=== PATIENT | male | born 1950 | race Two or more races ===

== ENCOUNTER 2017-02-24 17:38 | Emergency (ER) | payer BC ==
[2017-02-24 17:45] VITALS: BP 182/99
--- NOTE | 2017-02-24 18:25 | UC ---
Lower Extremity/Ankle HPI - HPI Summary HPI Summary: Swollen red tender area on left lower leg worsening over the past 2 days - History of Current Complaint Chief Complaint: UCLowerExtremity Stated Complaint: LEG PAIN Time Seen by Provider: 02/24/17 18:16 Hx Obtained From: Patient Onset/Duration: Gradual Onset, Lasting Days - 2 Severity Initially: Mild Severity Currently: Moderate Pain Intensity: 5 Pain Scale Used: 0-10 Numeric Aggravating Factor(s): Nothing Alleviating Factor(s): Nothing Able to Bear Weight: Yes - Allergies/Home Medications Allergies/Adverse Reactions: Allergies Allergy/AdvReac Type Severity Reaction Status Date / Time No Known Allergies Allergy Verified 02/24/17 17:39 PMH/Surg Hx/FS Hx/Imm Hx Endocrine History: Diabetes - Surgical History Surgical History: Yes Surgery Procedure, Year, and Place: Appendectomy, Ulnar nerve surgery, Appendectomy, - Family History Known Family History: Positive: None - Social History Occupation: Retired Lives: With Family Alcohol Use: Daily Alcohol Amount: 1-2 beers/night Substance Use Type: None Smoking Status (MU): Former Smoker - Immunization History Most Recent Influenza Vaccination: Fall 2013 Most Recent Tetanus Shot: Unknown Most Recent Pneumonia Vaccination: Never Review of Systems Constitutional: Negative Skin: Negative Eyes: Negative ENT: Negative Respiratory: Negative Cardiovascular: Negative Gastrointestinal: Negative Genitourinary: Negative Motor: Negative Neurovascular: Negative Musculoskeletal: Myalgia - lower left leg Neurological: Negative Psychological: Negative Is Patient Immunocompromised?: No All Other Systems Reviewed And Are Negative: Yes Physical Exam Triage Information Reviewed: Yes Appearance: Well-Appearing, No Pain Distress, Well-Nourished Vital Signs: Initial Vital Signs Temp 98.2 F 02/24/17 17:42 Pulse 63 02/24/17 17:42 Resp 15 02/24/17 17:42 BP 182/99 02/24/17 17:42 Pulse Ox 99 02/24/17 17:42 Vital Signs Reviewed: Yes Eye Exam: Normal Eyes: Positive: Conjunctiva Clear ENT Exam: Normal ENT: Positive: Normal ENT inspection, Hearing grossly normal. Negative: Nasal congestion, Nasal drainage, Trismus, Muffled/hoarse voice Dental Exam: Normal Neck exam: Normal Neck: Positive: Supple, Nontender Respiratory Exam: Normal Respiratory: Positive: Chest non-tender, Normal breath sounds, No respiratory distress Cardiovascular Exam: Normal Cardiovascular: Positive: RRR, Pulses Normal, Brisk Capillary Refill Musculoskeletal Exam: Normal Musculoskeletal: Positive: Strength Intact, ROM Intact, No Edema Neurological Exam: Normal Neurological: Positive: Alert, Muscle Tone Normal, Fatigued Psychological Exam: Normal Skin Exam: Normal Skin: Positive: Other - erythema left lower leg Lower Extremity Course/Dx - Course Course Of Treatment: d/c to [facility] for further care - Differential Dx/Diagnosis Differential Diagnosis/HQI/PQRI: Compartment Syndrome, DVT, Infection Provider Diagnoses: Red left lower leg, hupertension with diagnosis of high blood pressure Discharge - Discharge Plan Condition: Stable Disposition: HOME Patient Education Materials: Cellulitis (ED), Deep Venous Thrombosis (ED), Hypertension (ED) Referrals: Nikhil Torres MD [Primary Care Provider] - 1 Week Additional Instructions: We are recommending that you go directly to the hospital for a further evaluation than what can be done at the urgent care
== END 2017-02-24 18:35 | disposition home or self-care (01) ==
LOC: UCEAST 17:38
DX: R21 Rash and other nonspecific skin eruption (principal); R60.0 Localized edema; I10 Essential (primary) hypertension; E11.9 Type 2 diabetes mellitus without complications; Z87.891 Personal history of nicotine dependence
CPT/HCPCS: 99211; G0463

== ENCOUNTER 2017-02-24 19:08 | Emergency (ER) | payer BC ==
--- NOTE | 2017-02-24 20:19 | RAD ---
INDICATION: Anterior and lateral distal LEFT calf and ankle pain for 2 days without known injury. COMPARISON: No relevant prior exams available on the [facility] [place]. TECHNIQUE: Diamond scale, color Doppler, and spectral analysis of the deep veins of the LEFT lower extremity. Vessel compression, phasicity, and augmentation assessed. REPORT: The LEFT common femoral, great saphenous, profunda femoral, femoral, popliteal, peroneal, and posterior tibial veins are patent. Subcutaneous edema visualized at the anterolateral distal LEFT calf and ankle corresponding with the region of pain. No loculated hematoma or abscess collection evident. Patency of the RIGHT common femoral vein documented. IMPRESSION: No evidence for LEFT lower extremity deep venous thrombosis.
[2017-02-24 21:08] LABS: Hematocrit 45 % (42-52); Hemoglobin 15.6 g/dl (14.0-18.0); Mean Corpuscular HGB Conc 35 g/dl (31-36); Mean Corpuscular Hemoglobin 32 pg (27-31); Mean Corpuscular Volume 91 fL (80-94); Mean Platelet Volume 8 um3 (7.4-10.4); Red Blood Count 4.94 10^6/ul (4.0-5.4); Red Cell Distribution Width 13 % (10.5-15); White Blood Count 8.6 10^3/ul (3.5-10.8)
[2017-02-24 21:22] LABS: Albumin 4.3 g/dL (3.2-5.2); C Reactive Protein 8.67 mg/L (< 5.00); Calcium 9.4 mg/dL (8.6-10.3); EGFR African American 95.9 (>60); EGFR Non-African American 74.5 (>60); Globulin 2.6 g/dL (2-4); Potassium 3.7 mmol/L (3.5-5.0); Total Protein 6.9 g/dL (6.4-8.9)
[2017-02-24 21:55] VITALS: BP 142/91
[2017-02-24] MEDS ORDERED: Cephalexin CAP* 500 MG PO ONE (22:07)
--- NOTE | 2017-02-25 05:55 | ED ---
Minyd Alarcon Emily, scribed for Jose Gilmore MD on 02/24/17 at 2157 . Lower Extremity - HPI Summary HPI Summary: This patient is a 66 year old M presenting to [facility] referred by convenient care with a chief complaint of LLE pain that started 2 days ago. The CC is described as soreness. The patient rates the pain 8/10 in severity. Symptoms aggravated by ambulation. Symptoms alleviated by nothing. Patient reports sore muscles in back of the LLE, redness of LLE, and muscle cramps. Patient denies hx of gout, arthirits, infections, and blood clots. Pt denies trauma to LLE. PMHx includes DM. - History of Current Complaint Chief Complaint: EDExtremityLower Stated Complaint: PAIN AND SWOLLEN LT LEG Time Seen by Provider: 02/24/17 21:50 Hx Obtained From: Patient Onset of Pain: Days Onset/Duration: Still Present Severity Initially: Moderate Severity Currently: Moderate Pain Intensity: 8 Pain Scale Used: 0-10 Numeric Timing: Constant, Lasting Days Associated Signs And Symptoms: Positive: Redness Aggravating Factor(s): Ambulation Alleviating Factor(s): Nothing - Allergies/Home Medications Allergies/Adverse Reactions: Allergies Allergy/AdvReac Type Severity Reaction Status Date / Time No Known Allergies Allergy Verified 02/24/17 17:39 PMH/Surg Hx/FS Hx/Imm Hx Previously Healthy: No Endocrine/Hematology History: Reports: Hx Diabetes Cardiovascular History: Reports: Hx Angina, Hx Hypertension Denies: Hx Coronary Artery Disease, Hx Hypercholesterolemia, Hx Myocardial Infarction, Hx Valvular Heart Disease Respiratory History: Denies: Hx Asthma, Hx Chronic Obstructive Pulmonary Disease (COPD) GI History: Reports: Hx Diverticulosis History: Reports: Hx Kidney Stones Sensory History: Reports: Hx Contacts or Glasses Opthamlomology History: Reports: Hx Contacts or Glasses Neurological History: Reports: Hx Headaches - Cancer History Cancer Type, Location and Year: 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 - Surgical History Surgery Procedure, Year, and Place: Appendectomy, Ulnar nerve surgery, Appendectomy, - Immunization History Date of Tetanus Vaccine: Unk Date of Influenza Vaccine: Fall 2013 Infectious Disease History: No Infectious Disease History: Denies: Hx Clostridium Difficile, Hx Hepatitis, Hx Human Immunodeficiency Virus (HIV), Hx of Known/Suspected MRSA, Hx Shingles, Hx Tuberculosis, Hx Known/ Suspected VRE, Hx Known/Suspected VRSA, History Other Infectious Disease, Traveled Outside the [place] in Last 30 Days - Family History Known Family History: Positive: Other - Positive coronary artery disease. - Social History Occupation: Employed Full-time Lives: With Family Alcohol Use: Daily Alcohol Amount: 1-2 beers/night Substance Use Type: Reports: None Hx Tobacco Use: No Smoking Status (MU): Former Smoker Review of Systems Positive: Other - LLE pain, muscle cramps, sore muscles in the back of LLE Positive: Other - Redness of LLE. All Other Systems Reviewed And Are Negative: Yes Physical Exam - Summary Physical Exam Summary: The patient is well-nourished in no acute distress and in no acute pain. The skin is warm and dry. Erythema on anterior messina, skin is a little warm not hot. No streaks up the leg. Blister on left foot. No ringworm. HEENT: The head is normocephalic and atraumatic. The pupils are equal and reactive. The conjunctivae are clear and without drainage. Nares are patent and without drainage. Mouth reveals moist mucous membranes and the throat is without erythema and exudate. The external ears are intact. The ear canals are patent and without drainage. The tympanic membranes are intact. Neck is supple with full range of motion and non-tender. There are no carotid bruits. There is no neck vein distension. Respiratory: Chest is non-tender. Lungs are clear to auscultation and breath sounds are symmetrical and equal. Cardiovascular: Heart is regular rate and rhythm. There is no murmur or rub auscultated. There is no peripheral edema and pulses are symmetrical and equal. Abdomen: The abdomen is soft and non-tender. There are normal bowel sounds heard in all four quadrants and there is no organomegaly palpated. No CVA tenderness. Musculoskeletal: There is no back pain noted. Extremities are with full range of motion. There is good capillary refill. Edema in LLE. Calf tenderness. No reproducible pain. No popliteal or inguinal adenopathy. Neurological: Patient is alert and oriented to person, place and time. The patient has symmetrical motor strength in all four extremities. Cranial nerves are grossly intact. Deep tendon reflexes are symmetrical and equal in all four extremities. Psychiatric: The patient has an appropriate affect and does not exhibit any anxiety or depression. Triage Information Reviewed: Yes Vital Signs On Initial Exam: Initial Vitals Temp Pulse Resp BP Pulse Ox 98.7 F 65 16 150/90 97 02/24/17 19:23 02/24/17 19:23 02/24/17 19:23 02/24/17 19:23 02/24/17 19:23 Vital Signs Reviewed: Yes Diagnostics - Vital Signs Vital Signs Temp Pulse Resp BP Pulse Ox 02/24/17 21:15 98.2 F 67 16 144/73 100 02/24/17 19:23 98.7 F 65 16 150/90 97 - Laboratory Lab Results: Lab Results 02/24/17 02/24/17 02/24/17 Range/Units 20:55 20:55 20:55 WBC 8.6 (3.5-10.8) 10^3/ul RBC 4.94 (4.0-5.4) 10^6/ul Hgb 15.6 (14.0-18.0) g/dl Hct 45 (42-52) % MCV 91 (80-94) fL MCH 32 H (27-31) pg MCHC 35 (31-36) g/dl RDW 13 (10.5-15) % Plt Count 187 (150-450) 10^3/ul MPV 8 (7.4-10.4) um3 Neut % (Auto) 57.2 (38-83) % Lymph % (Auto) 30.9 (25-47) % [place] % (Auto) 8.3 (1-9) % Eos % (Auto) 2.7 (0-6) % Baso % (Auto) 0.9 (0-2) % Absolute Neuts (auto) 4.9 (1.5-7.7) 10^3/ul Absolute Lymphs (auto) 2.7 (1.0-4.8) 10^3/ul Absolute Monos (auto) 0.7 (0-0.8) 10^3/ul Absolute Eos (auto) 0.2 (0-0.6) 10^3/ul Absolute Basos (auto) 0.1 (0-0.2) 10^3/ul Absolute Nucleated RBC 0.01 10^3/ul Nucleated RBC % 0.2 Sodium 139 (133-145) mmol/L Potassium 3.7 (3.5-5.0) mmol/L Chloride 106 (101-111) mmol/L Carbon Dioxide 26 (22-32) mmol/L Anion Gap 7 (2-11) mmol/L BUN 19 (6-24) mg/dL Creatinine 1.00 (0.67-1.17) mg/dL Est GFR ( Amer) 95.9 (>60) Est GFR (Non-Af Amer) 74.5 (>60) BUN/Creatinine Ratio 19.0 (8-20) Glucose 208 H (70-100) mg/dL Lactic Acid 0.9 (0.5-2.0) mmol/L Calcium 9.4 (8.6-10.3) mg/dL Total Bilirubin 1.00 (0.2-1.0) mg/dL AST 33 (13-39) U/L ALT 41 (7-52) U/L Alkaline Phosphatase 60 (34-104) U/L C-Reactive Protein 8.67 H (< 5.00) mg/L Total Protein 6.9 (6.4-8.9) g/dL Albumin 4.3 (3.2-5.2) g/dL Globulin 2.6 (2-4) g/dL Albumin/Globulin Ratio 1.7 (1-3) Result Diagrams: 02/24/17 20:55 02/24/17 20:55 Lab Statement: Any lab studies that have been ordered have been reviewed, and results considered in the medical decision making process. - Additional Comments Diagnostic Additional Comments: Venous Doppler study read by radiologist: IMPRESSION: No evidence for LEFT lower extremity deep venous thrombosis. ED physician has reviewed this radiology report and agreed. Lower Extremity Course/Dx - Course Course Of Treatment: This patient is a 66 year old M presenting to [facility] referred by convenient care with a chief complaint of LLE pain that started 2 days ago. The CC is described as soreness. The patient rates the pain 8/10 in severity. Symptoms aggravated by ambulation. Symptoms alleviated by nothing. Patient reports sore muscles in back of the LLE, redness of LLE, and muscle cramps. Patient denies hx of gout, arthirits, infections, and blood clots. Pt denies trauma to LLE. PMHx includes DM. Physical Exam Findings. Erythema on anterior messina. Skin is a little warm not hot. LLE edema. Calf tenderness. No popliteal or inguinal adenopathy. No streaks up the leg. Blister on left foot. No ringworm. No cva tenderness. No reproducible pain. Medical Decision Making. A venous Doppler study read by radiologist. IMPRESSION: No evidence for LEFT lower extremity deep venous thrombosis. ED physician has reviewed this radiology report and agrees. Patient will be discharged with prescription for Cephalexin and follow up from Dr. Tejeda. The patient is agreeable with this plan. - Diagnoses Differential Diagnosis/HQI/PQRI: Positive: Cellulitis, DVT, Infection Provider Diagnoses: Cellulitis Discharge - Discharge Plan Condition: Stable Disposition: HOME Prescriptions: Cephalexin CAP* [Keflex CAP*] 500 mg PO QID #28 cap Patient Education Materials: Cephalexin (By mouth), Cellulitis (ED) Referrals: Nikhil Torres MD [Primary Care Provider] - 3 Days Additional Instructions: Follow up with your Primary Care Provider in the next 3 days. Keep your leg elevated, try warm soaks. Take prescriptions as prescribed. Please return to the ED if you experience new or worsening symptoms, including spreading redness or streaking up leg, high fever or nausea. The documentation as recorded by the Mindy storm Emily accurately reflects the service I personally performed and the decisions made by me, Jose Gilmore MD.
== END 2017-02-24 22:35 | disposition home or self-care (01) ==
LOC: ED 19:08
DX: L03.116 Cellulitis of left lower limb (principal); E11.9 Type 2 diabetes mellitus without complications; Z87.891 Personal history of nicotine dependence; I10 Essential (primary) hypertension; I20.9 Angina pectoris, unspecified; K57.90 Diverticulosis of intestine, part unspecified, without perforation or abscess without bleeding; Z87.442 Personal history of urinary calculi
CPT/HCPCS: 36415; 80053; 83605; 85025; 86140; 99282; A9270-GY

== ENCOUNTER 2018-08-16 05:44 | Day surgery (SDC) | payer BC, MEDICARE ==
[~2018-08-16 05:44] MED LIST: Buffered Lidocaine 1% SYRIN* 1 ML/SYRINGE INTRADERM ONE
[2018-08-16] MEDS ORDERED: Lactated Ringers 1000 ML Bag* 1,000 ML IV SCH (06:00)
[2018-08-16] MEDS ORDERED: Famotidine IV* 10 MG/ML 2 ML (20 mg) IV ONE (06:00)
[2018-08-16] MEDS ORDERED: Famotidine IV* 10 MG/ML 2 ML (20 mg) ONE (06:09)
[2018-08-16] MEDS ORDERED: ceFAZolin 2 GM PREMIX in ORs 2 GM/50 ML BAG IVPB ONE (06:09)
[2018-08-16] MEDS ORDERED: Bupivacaine 0.25% SDV PF* 10 ML VIAL INJ ONE (07:16)
[2018-08-16] MEDS ORDERED: Ondansetron INJ* 2 MG/ML VIAL ONE (07:22)
[2018-08-16] MEDS ORDERED: fentaNYL* 50 MCG/ML 2 ML VIAL (100 MCG VIAL) ONE ×3 (07:22→11:20)
[2018-08-16] MEDS ORDERED: Lidocaine 2% PF * 5 ML VIAL ONE (07:22)
[2018-08-16] MEDS ORDERED: Dexamethasone IV* 4 MG/ML 1 ML (4 MG) ONE (07:22)
[2018-08-16] MEDS ORDERED: Propofol* 10 MG/ML 20 ML BTL ONE (07:22)
[2018-08-16] MEDS ORDERED: Midazolam* 1 MG/ML 5 ML VIAL (5 MG) ONE (07:23)
[2018-08-16] MEDS ORDERED: EPHEDrine (Pressors)* 50 MG/ML VIAL ONE (08:12)
[2018-08-16] MEDS ORDERED: Naloxone* 0.4 MG/ML 1 ML VIAL IV PRN (09:23)
[2018-08-16] MEDS ORDERED: oxyCODONE/Acetamin 5/325 MG* TAB PO PRN (09:23)
[2018-08-16] MEDS ORDERED: Ondansetron INJ* 2 MG/ML VIAL IV PRN (09:23)
[2018-08-16] MEDS ORDERED: HYDROmorphone INJ1* 1 MG/ML SYRINGE ONE (09:36)
[2018-08-16] MEDS ORDERED: oxyCODONE/Acetamin 5/325 MG* TAB ONE (11:20)
[2018-08-16] MEDS: fentaNYL* 50 MCG/ML 2 ML VIAL (100 MCG VIAL) IV PRN ×2 (11:26→11:31)
[2018-08-16 13:24] VITALS: BP 147/65
== END 2018-08-16 13:27 | disposition home or self-care (01) ==
LOC: OR 05:44
PROVIDERS: ATTEND Plastic Surgery
DX: G56.21 Lesion of ulnar nerve, right upper limb (principal); M72.0 Palmar fascial fibromatosis [Dupuytren]; E11.9 Type 2 diabetes mellitus without complications; Z79.84 Long term (current) use of oral hypoglycemic drugs; Z85.828 Personal history of other malignant neoplasm of skin
CPT/HCPCS: A9270-GY; C1763; J0690; J1100; J1170; J2250; J2405; J2704; J3010; J3490

== ENCOUNTER 2019-06-27 13:24 | Day surgery (SDC) | payer MEDICARE ==
[~2019-06-27 13:24] MED LIST changes: +Lactated Ringers 1000 ML Bag* 1,000 ML IV SCH
[2019-06-27] MEDS ORDERED: Buffered Lidocaine 1% SYRIN* 1 ML/SYRINGE INTRADERM ONE (13:45)
[2019-06-27] MEDS ORDERED: ceFAZolin 2 GM PREMIX in ORs 2 GM/50 ML BAG ONE (13:47)
[2019-06-27] MEDS ORDERED: Midazolam* 1 MG/ML 2 ML VIAL (2 MG) ONE ×3 (14:07→15:51)
[2019-06-27] MEDS ORDERED: fentaNYL* 50 MCG/ML 2 ML VIAL (100 MCG VIAL) ONE ×2 (14:07→15:35)
[2019-06-27] MEDS ORDERED: Bupivacaine 0.25% SDV PF* 10 ML VIAL INJ ONE ×2 (14:20→15:03)
[2019-06-27] MEDS ORDERED: Propofol* 10 MG/ML 20 ML BTL ONE ×3 (14:40→16:17)
[2019-06-27 18:01] VITALS: BP 185/91
--- NOTE | 2019-06-28 09:29 | OP ---
DATE OF OPERATION: 06/27/19 - [facility] DATE OF : 48 SURGEON: David Newsome MD METALLOGRAPHY TEACHER: Colleen Bailey. ANESTHESIOLOGIST: Lorraine Cotter MD ANESTHESIA: Local MAC. PRE-OP DIAGNOSIS: Dupuytren's contracture right hand. POST-OP DIAGNOSIS: Dupuytren's contracture right hand. OPERATIVE PROCEDURE: Right partial palmar fasciectomy with a release of the little finger. ESTIMATED BLOOD LOSS: Minimal. SPECIMENS: Right palmar fascia with Dupuytren's disease. DRAINS: None. TOTAL TOURNIQUET TIME: 85 minutes. INDICATION FOR OPERATION: The patient is a 68-year-old [id number] male who presents with several year history of progressive onset of nodules and bands in his right palm associated with progressive contracture of the little finger as well as difficulty moving his thumb. Examination of the right upper extremity demonstrates typical appearing Dupuytren's bands and nodules in the right palm associated with a severe contracture of the right little finger PIP joint and mild contracture of the MP joint at the right ring finger. There is palmar fibrosis in the right thenar area and radial side of the thumb with limited palmar and radial abduction of the thumb. DESCRIPTION OF PROCEDURE: The patient was brought to the operating room and placed in the supine position on the stretcher and secured with a strap. The patient was given intravenous sedation by Dr. Cotter. The right upper extremity was prepped with ChloraPrep solution, draped sterilely and placed on a hand surgery table. Local infiltration of the operative site was performed with injection of approximately 30 cc of 0.25% plain Marcaine. The hand was exsanguinated with an Esmarch bandage and pneumatic tourniquet on the proximal forearm inflated to 250 mmHg pressure. Zigzag incisions were made on the ulnar side of the palm extending out past PIP level of the little finger and past the MP level of the ring finger. Zigzag incision was also made overlying the thenar area extending up along the radial side of the thumb. Skin and subcutaneous flaps were carefully dissected off of the Dupuytren's nodules and bands and flaps were carefully elevated using sharp dissection with scalpel and scissors. Digital nerves were carefully identified and preserved throughout the procedure. The diseased areas of palmar fascia were completely excised. Following this closed capsulotomy of the PIP joint of the little finger was performed by passive full extension of the joint. Full extension was achieved. In addition, full extension of the ring finger was also noted. Excellent improvement in radial and palmar abduction of the thumb was also noted. The wounds were irrigated with saline solution. Skin flaps were then closed in Y to V fashion, making small transverse few millimeter length, incisions at the apices of the flap insets to allow for skin lengthening in the axis of the digits. The flaps were then inset and closed with interrupted horizontal mattress and simple sutures of 5-0 nylon. Xeroform was applied to the incision lines and a bulky fluff gauze hand dressing was applied. As I was finishing the application of the soft dressing, the patient was becoming more alert and was complaining that he had to urinate. Then, suddenly, the patient turned to the right side forcefully and the restraining strap across his torso appeared to come loose from the left side of the stretcher and he proceeded to roll off the right side of the stretcher. His upper body was initially supported by the hand surgery table, which also started to give way, however, by this time the surgical team was able to support him and gently lower him to the ground. He was still quite sedated, but breathing comfortably and his vital signs were stable. He was rolled into the right lateral decubitus position and placed onto a hard full body length backboard and then laid supine on the backboard and with aid of multiple operating room staff was lifted back onto the stretcher. At this time, I was able to complete the dressing by applying a short arm plaster volar splint with the fingers in extension and this was secured with Coban wrap. The tourniquet had been released once the soft dressing had been applied and good perfusion of the fingers was noted. All counts were reported as correct at the end of the procedure. The patient was alert and had no complaints of pain and was taken to the recovery area in stable postoperative condition. [id number]/[facility] #: [id number] DESIRE
== END 2019-06-27 18:11 | disposition home or self-care (01) ==
LOC: OR 13:24
PROVIDERS: ATTEND Plastic Surgery
DX: M72.0 Palmar fascial fibromatosis [Dupuytren] (principal); I10 Essential (primary) hypertension; I48.91 Unspecified atrial fibrillation; E11.9 Type 2 diabetes mellitus without complications; Z79.84 Long term (current) use of oral hypoglycemic drugs; Z79.01 Long term (current) use of anticoagulants; E78.5 Hyperlipidemia, unspecified; E66.9 Obesity, unspecified; Z85.828 Personal history of other malignant neoplasm of skin
CPT/HCPCS: 88304; J0690; J2250; J2704; J3010; J3490

== ENCOUNTER 2024-04-18 06:33 | Observation (INO) ==
[2024-04-18 07:18] LABS: Rapid COVID-19 Molecular Undetected (Undetected)
[2024-04-18] MEDS ORDERED: Ondansetron 4 mg VIAL 2 MG/ML 2 ml VIAL IV PRN ×2 (07:27→07:40)
[2024-04-18] MEDS ORDERED: Naloxone 0.4 mg VIAL 0.4 mg/ml 1 ml VIAL IV PRN (07:40)
[2024-04-18] MEDS ORDERED: Metoclopramide 5 MG/ML VIAL (10 mg) IV PRN (07:40)
[2024-04-18] MEDS ORDERED: Propofol 10 MG/ML 20 ML BTL ONE (07:55)
[2024-04-18] MEDS ORDERED: NS 0.45% 1000 ml BAG 1,000 ML IV SCH (08:00)
[2024-04-18] MEDS ORDERED: Midazolam 2 mg/2 ml VIAL 1 mg/ml 2 ml VIAL (2 mg) ONE (08:11)
[2024-04-18] MEDS ORDERED: fentaNYL 100 mcg/2 ml 50 MCG/ML VIAL ONE ×2 (08:11→09:58)
[2024-04-18] MEDS ORDERED: Lidocaine 2% PF 5 ML VIAL ONE (08:11)
[2024-04-18] MEDS: NS 0.9% 1000 ml BAG 1,000 ML IV SCH (08:46)
[2024-04-18] MEDS: Scopolamine 1 mg/72hr PATCH TRANSDERM ONE (08:47)
[2024-04-18] MEDS ORDERED: HYDROmorphone 0.5 MG/0.5 ML SYRINGE ONE (08:50)
[2024-04-18] MEDS ORDERED: Ondansetron 4 mg VIAL 2 MG/ML 2 ml VIAL ONE (08:57)
[2024-04-18] MEDS ORDERED: Dexamethasone IV 4 MG/ML VIAL 1 ml VIAL ONE (08:57)
[2024-04-18] MEDS ORDERED: Furosemide 20 mg/2 ml IV VIAL ONE (09:18)
[2024-04-18] MEDS: fentaNYL 100 mcg/2 ml 50 MCG/ML VIAL IV PRN (10:00)
[2024-04-18] MEDS: NS 0.9% IVPB ONE (10:50)
[2024-04-18] MEDS: Ampicillin ADVAN 2 GM in NS 0.9% 100 ML IVPB ONE (10:50)
[2024-04-18] MEDS: GENTAMICIN ADULT IVPB ONE (10:50)
[2024-04-18] MEDS: Acetaminophen IV 1 GM/100ML 1,000 MG/100 ML BAG IV ONE (10:50)
[2024-04-18] MEDS: Buffered Lidocaine 1% SYRIN 1 ml INTRADERM ONE (10:51)
[2024-04-18] MEDS ORDERED: Dextrose 50% Syringe 50 ml 25 GM/50 ML SYRINGE IV PUSH PRN (11:11)
[2024-04-18] MEDS: Lactated Ringers 1000 ml BAG 1,000 ML IV SCH (11:52)
[2024-04-18] MEDS: Neomycin/Polym/Bacit TOP OINT 15 GM TOPICAL SCH (12:22)
[2024-04-18] MEDS: Magnesium Hydroxide LIQ 30 ML UDC PO SCH (12:22)
[2024-04-19 10:57] VITALS: BP 144/70
[2024-04-19] MEDS ORDERED: CMCS: DAPAGLIFLOZIN 10 MG TAB (NF) PO SCH (21:00)
== END 2024-04-19 14:50 | disposition home or self-care (01) ==
LOC: SSU 06:33 → OR 06:33
PROVIDERS: ADMIT Urology; ATTEND Urology